=== PATIENT | female | born 1955 | race Caucasian/White ===

== ENCOUNTER → 2016-08-10 | Outpatient (CLI) | payer OTHER ==
[~2016-08-10] MED LIST: ABILIFY15 MG PO; ADDERALL30 MG PO; BRINTELLIX PO; CELEXA40 MG PO; CYMBALTA60 MG PO; INVEGA6 MG PO; LACTULOSE PO; LAMICTAL25 MG PO; LEVOTHYROXINE0.05 M1 PO; LISINOPRIL10 M1 PO; LISINOPRIL10 MG PO; LOPRESSOR25 MG PO; OMEPRAZOLE D/R20 MG PO; PRAVACHOL40 MG PO; PREMARIN0.625 M1 PO; PRILOSEC20 M2 PO; ROZEREM8 MG PO; SIMVASTATIN40 MG PO; TESSALON PERLE200 MG PO; THYROXIN PO; VITAMIN D1000 IU PO; ZITHROMAX Z PA250 MG PO; ZOCOR40 MG PO
== END | disposition home or self-care (01) ==
LOC: MAMMO 07-27 11:30
DX: Z12.31 Encounter for screening mammogram for malignant neoplasm of breast (principal)

== ENCOUNTER → 2016-10-04 | Day surgery (SDC) | payer OTHER ==
[~2016-10-04] VITALS: Ht 157.4 cm; Wt 75.3 kg
[~2016-10-04] MED LIST changes: +Lopressor25 MG PO; +NATURE'S BLEN5000 IU PO; +NATURE'S BLEND F1 MG PO; +VRAYLAR6 MG PO
--- NOTE | ~2016-10-04 | O ---
[place], [place] OPERATIVE NOTE NAME: SHAAN BRIGGS UNIT #: [id number] ROOM: DOCTOR: TIFFANY ROMO MD BIRTHDATE: [birth year] DOS: INDICATIONS: This is a 61-year-old patient who has presented with chief complaint of change in bowel habits, bloated, gassy, distended, dyspepsia, undergoing investigation. ALLERGIES: No known medication. FAMILY HISTORY: Grandmother with pancreatic CA. PAST SURGICAL HISTORY: Gallbladder and tonsillectomy. PAST MEDICAL HISTORY: Hypercholesterolemia, hypertension. SOCIAL HISTORY: Smoker and nonalcohol consumer at the present time; however, history of heavy alcohol consumption. PROCEDURE: Today's procedure part of investigation is panendoscopy and colonoscopy. PREMEDICATION: Versed and Diprivan. SCOPE: Olympus forward-viewing colonoscope 10L video. REPORT: After putting the patient in left lateral position and after application of lubricant to the scope, the scope was introduced; thereafter, under direct visualization, advanced through the length of colon without difficulty. Evidence of diverticulosis was seen. Base of the cecum explored, 3 polypoid lesions, sessile in character in hepatic flexure, 1 with snare and 2 with piecemeal polypectomy removed. Air was suctioned out. The patient was extubated, tolerated procedure well. IMPRESSION: Diverticulosis, sessile colonic polyp, hepatic flexure, status post polypectomy, 1 with snare and 2 with piecemeal polypectomy. PLAN AND DISCUSSION: Change in bowel habit bloated gassy diarrhea periodically all could be related to her diverticulosis coli history. High fiber diet was advised and we are going to proceed with panendoscopy. [place], [place] OPERATIVE NOTE NAME: DUONG BRIGGSBernardo Block UNIT #: [id number] ROOM: DOCTOR: TIFFANY ROMO MD BIRTHDATE: [birth year] TIFFANY ROMO MD CM:OPRECORD:OPERATIVE NOTE 1156 1405 TIFFANY ROMO MD 10/04/16 1405 interface
--- NOTE | ~2016-10-04 | O ---
[place], [place] OPERATIVE NOTE [id number] UNIT #: [id number] ROOM: DOCTOR: CLARISSA GERMAN,TIFFANY BIRTHDATE: [birth year] DOS: INDICATIONS: The patient has presented with chief complaint of epigastric abdominal pain, dyspepsia, undergoing investigation. PROCEDURE: Today's procedure part of investigation is panendoscopy plus biopsy. PREMEDICATION: Versed and Diprivan. SCOPE: Olympus forward-viewing gastroscope Q10 video. REPORT: After putting the patient in the left lateral position and after application of lubricant to the scope, the scope was introduced. Thereafter, under direct visualization, I advanced through the length of esophagus without difficulty. Esophagus cervicothoracic distally carefully examined. Gastritis was noticed. Duodenal bulb, second and third part within normal limits. Antral biopsy was obtained. The patient was gradually extubated from lesser curvature, tolerated the procedure well. IMPRESSION: Gastritis, status post biopsy. PLAN AND DISCUSSION: Omeprazole 20 mg 1 every day would suffice management of her dyspepsia, high fiber diet. Advised to abstain from smoking. Advised to have routine followup with you in office, p.r.n. visit with us in GI Clinic. I thank you very much indeed for your kind referral. TIFFANY ROMO MD CM:OPRECORD:OPERATIVE NOTE 1156 1406 TIFFANY ROMO MD 10/04/16 1406 interface
[2016-10-04 11:02] VITALS: BP 154/85
[2016-10-04 11:52] VITALS: BP 107/58
[2016-10-04 12:05] VITALS: BP 155/68
[2016-10-04 12:22] VITALS: BP 164/80
== END | disposition home or self-care (01) ==
LOC: SDC 09-29 10:15
DX: D12.3 Benign neoplasm of transverse colon (principal); K57.30 Diverticulosis of large intestine without perforation or abscess without bleeding; K29.50 Unspecified chronic gastritis without bleeding; Z80.0 Family history of malignant neoplasm of digestive organs; E78.00 Pure hypercholesterolemia, unspecified; I10 Essential (primary) hypertension; F17.210 Nicotine dependence, cigarettes, uncomplicated; F10.20 Alcohol dependence, uncomplicated; F41.9 Anxiety disorder, unspecified; K21.9 Gastro-esophageal reflux disease without esophagitis; F31.9 Bipolar disorder, unspecified; Z90.710 Acquired absence of both cervix and uterus

== ENCOUNTER 2017-09-04 13:17 | Inpatient (IN) | payer OTHER ==
[~2017-09-04] VITALS: Ht 160 cm; Wt 75.7 kg
--- NOTE | ~2017-09-04 | PR ---
[place], [place] PROGRESS NOTE [id number] UNIT #: [id number] ROOM: 316 DOCTOR: LEONARD FITZPATRICK MD BIRTHDATE: [birth year] DOS: 09/07/2017 CHIEF COMPLAINT: "Thank you for helping me. I really appreciate it." SUMMARY OF THE VISIT: The patient was interviewed in the dining area where she was sitting with some female peers. She engaged readily in conversation and reported that she feels slightly less depressed. She feels less stressed out because she is here and people care. She reports that she slept well with the current medications and is feeling hopeful that they will continue to work better and better for her. MENTAL STATUS: She is alert and oriented with some time gaps. Mood does seem to be more euthymic. Affect is more appropriate. There is no jose e, hypomania. There are no psychotic symptoms. Short-term memory, intermediate memory and long-term memory for the most part are intact. PLAN: I will maintain her current psychotropic regimen, continue to engage in individual and chow milieu activity. We will return to the least restrictive environment when psychiatrically stable. LEONARD FITZPATRICK MD CM:PNTRANS 1148 1257 LEONARD FITZPATRICK MD 09/07/17 1256 interface
--- NOTE | ~2017-09-04 | DS ---
[place], [place] DISCHARGE SUMMARY NAME: [facility]AN BRIGGS [facility] [id number] UNIT #: [id number] ROOM: 312 DOCTOR: LEONARD CASIANO MD BIRTHDATE: [birth year] DOS: 09/10/2017 CHIEF COMPLAINT: "Good morning Dr. Casiano, I am just so depressed." HISTORY OF PRESENT ILLNESS: This is a 62-year-old white female known to me from her previous admission here to the [facility]. The patient did present to the Emergency Room at [facility] acutely depressed with suicidal ideation to either shoot herself or walk in front of a car. The patient reports that her depression has been ongoing, but has been made worse within the last week when she received her social security rejection letter stating that she would no longer be able to receive SSI and would need to go back to work. This overwhelmed her to the point where she was not eating or sleeping at home. She was not attending to her ADLs and she was crying frequently. When the suicidal thoughts began, she feared that she would end her life if she did not seek out, so she went and presented herself to the Emergency Room to be evaluated. She is admitted now to the [facility] to perform crisis stabilization, to engage in individual and chow milieu activity and to stabilize on medication, returning to the least restrictive environment when psychiatrically stable. PAST MEDICAL HISTORY: Remarkable for history of bipolar disorder, hypertension, GERD, bronchitis. The patient does not drink alcohol. She does smoke marijuana; however, but denies any other illicit drug use. STRENGTHS: She is ambulatory and she has minimal medical issues confronting her. SUMMARY OF THE HOSPITAL COURSE: The patient was initially started on Pristiq as an antidepressant that would bypass the liver and be activating, however, she complained that she did not like this particular antidepressant, had been on it in the past and it did not work. She continued to endorse significant sleep issues, so Remeron 15 mg at bedtime was added. Her Vraylar upon admission was at a dose of 4.5 mg daily. This was maximized out to 6 mg a day. With the combination of the Vraylar 6 mg a day and Remeron 15 mg at bedtime, the patient actually slept through the night. She woke up more refreshed. She was able to engage more readily in individual and chow milieu activities and began problem solving what she needed to do to cope with the stressors that were confronting her. When she had felt that she had adequately developed a coping plan to deal with future stressors, the patient then was discharged back home. MENTAL STATUS AT DISCHARGE: The patient was alert and oriented to person, place and time. Mood was euthymic. Affect was appropriate. There was no jose e or hypomania. There were no overt auditory or visual hallucinations. Memory for the most part was intact. FINAL DIAGNOSES: Major depression, recurrent, severe and dysthymic disorder. PLAN: Her prescriptions have been e scribed to [facility]. She will have followup at [facility]. She is medically and psychiatrically stable. Her biopsychosocial needs are adequately be met by the community at large and by [facility]. [place], [place] DISCHARGE SUMMARY NAME: SHAAN BRIGGS UNIT #: [id number] ROOM: [facility] DOCTOR: LEONARD CASIANO MD BIRTHDATE: [birth year] LEONARD CASIANO MD CM:DISCHARG [id number] LEONARD CASIANO MD 09/10/17 1004 interface
--- NOTE | ~2017-09-04 | PR ---
[place], [place] PROGRESS NOTE [id number] UNIT #: [id number] ROOM: 316 DOCTOR: LEONARD FITZPATRICK MD BIRTHDATE: [birth year] DOS: 09/08/2017 CHIEF COMPLAINT: "I didn't sleep well last night." SUMMARY OF THE VISIT: The patient was interviewed as she was resting in bed. As I entered the room, she was awake and she made eye contact and wished me a good morning. She reports that she is feeling better, but did not sleep well at all, having difficulty falling asleep and maintaining sleep throughout the night. She stated that this is a very common occurrence for her and at home sleep often times was an issue for her. She does note that the current medication regimen though is helping her mood and she is less depressed and less anxious during the day. She convincingly denies any medication side effects. MENTAL STATUS: She is alert and oriented to person, place and time. Mood does seem to be trending towards euthymia. Affect is much more appropriate. There is no jose e, hypomania. There is no psychosis. No auditory or visual hallucinations are noted. Short, intermediate and long-term memories are grossly intact. PLAN: I will utilize Rozerem 8 mg at bedtime p.r.n. for sleep as a non-addictive sleep aid. We will monitor and support, engage in individual and chow milieu activity, returning to the least restrictive environment when psychiatrically stable. LEONARD FITZPATRICK MD CM:PNTRANS 1040 1147 LEONARD FITZPATRICK MD 09/08/17 1146 interface
--- NOTE | ~2017-09-04 | WRIGHTHP ---
[place], [place] PATIENT HISTORY AND PHYSICAL EXAM NAME: SHAAN BRIGGS ACC #: [id number] UNIT #: [id number] ROOM: 316 DOCTOR: LEONARD CASIANO MD BIRTHDATE: [birth year] DOS: 09/05/2017 INITIAL PSYCHIATRIC EVALUATION CHIEF COMPLAINT: "Good morning, Dr. Casiano, I'm just so depressed." HISTORY OF PRESENT ILLNESS: This is a 62-year-old white female known to me from a [facility]. The patient presented to the Emergency Room at [facility] acutely depressed with suicidal ideation to either shoot herself or walk out in front of a car. The patient reports that her depression has been ongoing, but made worse within the last week when she receives a social security rejection letter stating that she was no longer going to be receiving SSI and needed to go back to work. This overwhelmed her to the point where she was not sleeping or eating. She was not attending to her ADLs. She was crying frequently. She began to start having suicidal thoughts and fear that she would end her life if she did not seek out help. The patient presented then to the Emergency Room in order to be [facility] to re-stabilize on medication. PAST MEDICAL HISTORY: Remarkable for a reported history of bipolar disorder as well as hypertension, GERD and bronchitis. The patient does not drink alcohol. She does do smoke marijuana frequently, but denies any other drug use. Her strengths are, she is ambulatory and has minimal medical issues confronting her. MENTAL STATUS: At admission, the patient is alert and oriented. Mood is overwhelmingly depressed. Affect is flat and blunted with constricted range. She endorses multiple neurovegetative symptoms including suicidal thoughts with a plan. There is no jose e, hypomania or psychosis. Short-term, long-term and intermediate memory are intact. DIAGNOSIS: Major depression, recurrent, severe. PLAN: I will discontinue her Pristiq in lieu of Remeron 15 mg at bedtime. She reports she did not sleep at all last night. I will maximize out her dose of Vraylar from 4.5 mg to 6 mg at bedtime, engage in individual and chow milieu activities, returning to the least restrictive environment when psychiatrically stable. [place], [place] PATIENT HISTORY AND PHYSICAL EXAM NAME: SHAAN BRIGGS UNIT #: [id number] ROOM: [facility] DOCTOR: LEONARD CASIANO MD BIRTHDATE: [birth year] LEONARD CASIANO MD CM:HISPHYS:PATIENT HISTORY AND PHYSICAL EXAMINATION 1129 1140 LEONARD CASIANO MD 09/05/17 1139 interface
--- NOTE | ~2017-09-04 | PR ---
[place], [place] PROGRESS NOTE NAME[id number] UNIT #: [id number] ROOM: 316 DOCTOR: LEONARD FITZPATRICK MD BIRTHDATE: [birth year] DOS: 09/06/2017 CHIEF COMPLAINT: "I did sleep a little better, but my belly as bothering me." SUMMARY OF THE VISIT: The patient was interviewed as she was resting on her bed. She was awake as I approached and she engaged readily in conversation. She reports that she slept better last night with the current medication regimen, but states that her belly has been bothering her and she has had persistent diarrhea, which has her concerned. I did mention I would pass this on to nursing, so that the hospitalist would be aware of it. Mood sheehan she still is depressed, but is hopeful that the Remeron is going to impact positively on her mood. She denies any other side effects from the medicines themselves. MENTAL STATUS: She remains alert and oriented with minor time gaps, but overall intact. Mood does still seem to be depressed with some anxious overtones. There is no hypomania or jose e. There are no overt auditory or visual hallucinations. No delusions, no paranoia. Short, intermediate and long-term memories are intact for the most part. PLAN: I will maintain Remeron at 15 mg at bedtime, maintain the Vraylar 6 mg at bedtime, continue to engage her in individual and chow milieu activity, returning then to the least restrictive environment when psychiatrically stable. LEONARD FITZPATRICK MD CM:PNTRANS 1139 1227 LEONARD FITZPATRICK MD 09/06/17 1226 interface
--- NOTE | ~2017-09-04 | PR ---
[place], [place] PROGRESS NOTE NAME: [facility]AN [facility]IG[id number] UNIT #: [id number] ROOM: 312 DOCTOR: LEONARD FITZPATRICK MD BIRTHDATE: [birth year] DOS: 09/09/2017 CHIEF COMPLAINT: "I didn't sleep well last night, but I still do not want that medicine straight." SUMMARY OF THE VISIT: The patient was interviewed in the dining area where she was engaging in activity. She reported that she had sleep continuity disturbance last night, waking up at least 3 times, but being able to fall asleep pretty quickly. She requested that I not order the sleeping pill straight, stating that she would like to be on as little medicine as possible. She does report that the current antidepressant with the Vraylar is helping her and she is feeling more positive about life. MENTAL STATUS: She is alert and oriented. Mood does seem to be trending towards euthymia. Affect is more appropriate. There is no jose e, hypomania or psychosis. Short-term, intermediate, and long-term memory are intact. PLAN: I will maintain her current psychotropic regimen, engage in individual and chow milieu activity with the plan to return home when psychiatrically stable. LEONARD FITZPATRICK MD CM:PNTRANS 1029 1134 LEONARD FITZPATRICK MD 09/09/17 1134 interface
[2017-09-04 13:24] VITALS: BP 175/95
[2017-09-04 13:56] LABS: BASO # 0.1 10*3/uL (0.0-0.1); BASO % 0.4 % (0.0-1.0); EOS # 0.1 10*3/uL (0.0-0.4); EOS % 0.9 % (1.0-4.0); HEMATOCRIT 43.3 % (37.0-47.0); HEMOGLOBIN 14.6 g/dl (12.0-16.0); LYMPH # 2.8 10*3/uL (1.3-4.4); LYMPH % 24.7 % (27.0-41.0); MEAN CORPUSCULAR HGB 29.7 pg (27.0-31.0); MEAN CORPUSCULAR HGB CONC 33.7 g/dl (33.0-37.0); MEAN PLATELET VOLUME 10.9 fl (9.6-12.3); MONO # 0.8 10*3/uL (0.1-1.0); MONO % 6.8 % (3.0-9.0); NEUT # 7.6 10*3/uL (2.3-7.9); NEUT % 66.9 % (47.0-73.0); PLATELET COUNT AUTOMATED 218 10*3/uL (130-400); RED BLOOD COUNT 4.92 10*6/uL (4.10-5.10); RED CELL DISTRI WIDTH 13.5 % (0-14.5); WHITE BLOOD COUNT 11.4 10*3/uL (4.8-10.8)
[2017-09-04 14:14] LABS: ACETAMINOPHEN (TYLENOL) < 2.0 ug/ml (10-30); ALBUMIN 4.1 gm/dl (3.1-4.5); ALKALINE PHOSPHATASE 86 U/L (45-117); BUN 12 mg/dl (7-24); CHLORIDE 105 mmol/L (98-107); CREATININE 0.94 mg/dL (0.55-1.02); POTASSIUM 4.2 mmol/L (3.5-5.1); SGOT/AST 56 IU/L (3-35); SGPT/ALT 73 U/L (12-78); SODIUM 139 mmol/L (136-145); TOTAL PROTEIN 7.1 gm/dL (6.4-8.2)
[2017-09-04 14:15] LABS: ETHYL ALCOHOL < 3.0 mg/dl (<3)
[2017-09-04] MEDS ORDERED: Motrin,Rufen800 MG PO (14:22)
[2017-09-04] MEDS ORDERED: BUSPAR5 MG PO (14:22)
[2017-09-04 14:31] LABS: BILIRUBIN NEGATIVE (NEGATIVE); BLOOD NEGATIVE (NEGATIVE); CLARITY SL CLOUDY (CLEAR); COLOR YELLOW (YELLOW); GLUCOSE NEGATIVE (NEGATIVE); KETONE 1+ (NEGATIVE); LEUKO ESTERASE NEGATIVE (NEGATIVE); NITRITE NEGATIVE (NEGATIVE); SPECIFIC GRAVITY 1.025 (1.005-1.030); UROBILINOGEN 0.2 E.U./dl (0.2-1.0)
[2017-09-04 14:40] LABS: URINE AMPHETAMINES < 1000 (1000ng/ml); URINE BARBITURATES < 200 (200ng/ml); URINE BENZODIAZEPINES < 200 (200ng/ml); URINE CANNABINOIDS (THC) > 50 (50ng/ml); URINE COCAINE < 300 (300ng/ml); URINE METHADONE < 300 (300ng/ml); URINE OPIATES < 300 (300ng/ml)
[2017-09-04 14:41] LABS: URINE PHENCYCLIDINE < 25 (25ng/ml)
[2017-09-04 14:49] LABS: BACTERIA 2+; MUCOUS TRACE; RBC 0-2 rbc/hpf (0-2)
[2017-09-04 17:05] VITALS: BP 140/73
[2017-09-04] MEDS ORDERED: CLARITIN10 MG PO (17:45)
[2017-09-04 18:28] VITALS: BP 152/89
[2017-09-04 18:52] VITALS: BP 152/89
[2017-09-04 20:00] VITALS: BP 152/89
[2017-09-05 06:23] LABS: BASO % 0.3 % (0.0-1.0); EOS # 0.2 10*3/uL (0.0-0.4); EOS % 2.7 % (1.0-4.0); HEMATOCRIT 43.9 % (37.0-47.0); HEMOGLOBIN 14.4 g/dl (12.0-16.0); LYMPH # 2.7 10*3/uL (1.3-4.4); LYMPH % 37.6 % (27.0-41.0); MEAN CORPUSCULAR HGB 29.2 pg (27.0-31.0); MEAN CORPUSCULAR HGB CONC 32.8 g/dl (33.0-37.0); MEAN PLATELET VOLUME 10.8 fl (9.6-12.3); MONO # 0.6 10*3/uL (0.1-1.0); MONO % 7.7 % (3.0-9.0); NEUT # 3.7 10*3/uL (2.3-7.9); NEUT % 51.4 % (47.0-73.0); PLATELET COUNT AUTOMATED 157 10*3/uL (130-400); RED BLOOD COUNT 4.93 10*6/uL (4.10-5.10); RED CELL DISTRI WIDTH 13.7 % (0-14.5); WHITE BLOOD COUNT 7.2 10*3/uL (4.8-10.8)
[2017-09-05 06:43] LABS: ALBUMIN 3.4 gm/dl (3.1-4.5); BUN 13 mg/dl (7-24); CHLORIDE 107 mmol/L (98-107); POTASSIUM 4.3 mmol/L (3.5-5.1); SGOT/AST 43 IU/L (3-35); SODIUM 140 mmol/L (136-145)
[2017-09-05 06:56] LABS: ALKALINE PHOSPHATASE 82 U/L (45-117); CHOLESTEROL 141 mg/dL (<200); HDL CHOLESTEROL 36 mg/dl (40-60); LDL CHOLESTEROL 82 mg/dL (9-159); SGPT/ALT 64 U/L (12-78); TOTAL PROTEIN 6.7 gm/dL (6.4-8.2); TRIGLYCERIDES 113 mg/dl (<150); VLDL CHOLESTEROL 23 mg/dL (6-40)
[2017-09-05 07:37] LABS: VITAMIN D, 25-HYDROXY 43.1 ng/mL (30-100)
[2017-09-05 08:00] VITALS: BP 143/71
[2017-09-05] MEDS ORDERED: BUSPAR5 MG PO (11:32)
[2017-09-05 21:33] VITALS: BP 152/84
[2017-09-06 07:56] VITALS: BP 135/83
[2017-09-06 20:20] VITALS: BP 128/80
[2017-09-07 07:41] VITALS: BP 137/74
[2017-09-07 19:41] VITALS: BP 138/88
[2017-09-08 08:22] VITALS: BP 144/74
[2017-09-08 20:43] VITALS: BP 132/70
[2017-09-09 07:42] VITALS: BP 150/72
[2017-09-09 19:49] VITALS: BP 156/82
[2017-09-10 07:53] VITALS: BP 134/75
[2017-09-10] MEDS ORDERED: VITAMIN D5000 UNI1 PO (08:46)
[2017-09-10] MEDS ORDERED: MIRTAZAPINE15 M2 PO (08:46)
[2017-09-10] MEDS ORDERED: VRAYLAR6 MG PO (08:46)
== END 2017-09-10 15:42 | disposition home or self-care (01) | DRG 885 ==
LOC: ED 13:17 → 3N 17:31
PROVIDERS: Psychiatry & Neurology Psychiatry; Student in an Organized Health Care Education/Training Program
DX: F33.2 Major depressive disorder, recurrent severe without psychotic features (principal); R45.851 Suicidal ideations; F25.9 Schizoaffective disorder, unspecified; I10 Essential (primary) hypertension; R73.9 Hyperglycemia, unspecified; F12.20 Cannabis dependence, uncomplicated; D72.829 Elevated white blood cell count, unspecified; R74.0 Nonspecific elevation of levels of transaminase and lactic acid dehydrogenase [LDH]; K21.9 Gastro-esophageal reflux disease without esophagitis; F34.1 Dysthymic disorder; G89.29 Other chronic pain; R10.9 Unspecified abdominal pain; F17.210 Nicotine dependence, cigarettes, uncomplicated; Z86.59 Personal history of other mental and behavioral disorders; Z79.899 Other long term (current) drug therapy; Z79.1 Long term (current) use of non-steroidal anti-inflammatories (NSAID); Z90.49 Acquired absence of other specified parts of digestive tract; Z90.710 Acquired absence of both cervix and uterus; Z84.89 Family history of other specified conditions

== ENCOUNTER → 2019-04-09 | Outpatient (CLI) | payer OTHER ==
[~2019-04-09] MED LIST changes: +BUSPAR5 MG PO; +CLARITIN10 MG PO; +MIRTAZAPINE15 M2 PO; +Motrin,Rufen800 MG PO; +VITAMIN D5000 UNI1 PO
== END | disposition home or self-care (01) ==
LOC: RAD 10:11
DX: R05 Cough (principal)

== ENCOUNTER → 2020-01-19 | Outpatient (CLI) | payer OTHER | END | disposition home or self-care (01) | LOC: MAMMO 12:26 | PROVIDERS: ATTEND Family Medicine | DX: Z12.31 Encounter for screening mammogram for malignant neoplasm of breast (principal) ==

== ENCOUNTER 2021-11-28 15:19 | Emergency (ER) | payer OTHER ==
[~2021-11-28] VITALS: Wt 72.6 kg
[2021-11-28 15:32] VITALS: BP 160/88
[2021-11-28] MEDS ORDERED: MEDROL DOSEPAK4 MG PO (16:56)
== END 2021-11-28 19:24 | disposition home or self-care (01) ==
LOC: ED 15:19
DX: J04.0 Acute laryngitis (principal); Z79.899 Other long term (current) drug therapy; Z90.710 Acquired absence of both cervix and uterus; Z90.49 Acquired absence of other specified parts of digestive tract; F17.210 Nicotine dependence, cigarettes, uncomplicated

== ENCOUNTER → 2021-12-21 | Day surgery (SDC) | payer OTHER ==
[2021-12-16 13:16] VITALS: BP 133/81
[~2021-12-21] VITALS: Wt 73.9 kg
[2021-12-21] VITALS (7 sets, daily range): BP systolic 105–139; BP diastolic 65–86
[~2021-12-21] MED LIST changes: +AMOXICILLIN875 MG PO; +BELBUCA150 MCG BC; +BUSPIRONE15 MG PO; +HYDROXYZINE HYD50 MG PO; +LAMICTAL150 MG PO; +MEDROL DOSEPAK4 MG PO; +VICO10300 PO
== END | disposition home or self-care (01) ==
LOC: SDC 12-16 12:30
PROVIDERS: ATTEND Specialist
DX: J38.1 Polyp of vocal cord and larynx (principal); J34.89 Other specified disorders of nose and nasal sinuses; D36.7 Benign neoplasm of other specified sites; I10 Essential (primary) hypertension; E11.9 Type 2 diabetes mellitus without complications; K21.9 Gastro-esophageal reflux disease without esophagitis; F31.9 Bipolar disorder, unspecified; F41.9 Anxiety disorder, unspecified; E78.00 Pure hypercholesterolemia, unspecified; E03.9 Hypothyroidism, unspecified; J45.909 Unspecified asthma, uncomplicated; Z79.899 Other long term (current) drug therapy; Z90.49 Acquired absence of other specified parts of digestive tract; Z90.710 Acquired absence of both cervix and uterus

== ENCOUNTER → 2024-02-15 | Outpatient (CLI) | payer OTHER | END | disposition home or self-care (01) | LOC: US 13:30 | PROVIDERS: ATTEND Internal Medicine Cardiovascular Disease | DX: I87.2 Venous insufficiency (chronic) (peripheral) (principal); R60.0 Localized edema; M79.605 Pain in left leg ==

== ENCOUNTER 2024-07-05 18:45 | Emergency (ER) | payer OTHER ==
[~2024-07-05] VITALS: Ht 160 cm; Wt 63.5 kg
[2024-07-05 18:49] VITALS: BP 168/109
[2024-07-05] MEDS ORDERED: SODIUM CHLORIDE 0.9% 1,000 ML IV ONE (18:55)
[2024-07-05 19:11] LABS: BASO % 0.4 % (0.0-1.0); EOS # 0.1 10*3/uL (0.0-0.4); EOS % 0.7 % (1.0-4.0); HEMATOCRIT 46.3 % (37.0-47.0); MEAN CELL VOLUME 89.7 fl (81.0-99.0); MEAN CORPUSCULAR HGB 29.1 pg (27.0-31.0); MEAN CORPUSCULAR HGB CONC 32.4 g/dl (33.0-37.0); MEAN PLATELET VOLUME 9.7 fl (9.6-12.3); MONO # 0.7 10*3/uL (0.1-1.0); MONO % 6.6 % (3.0-9.0); NEUT # 7.4 10*3/uL (2.3-7.9); NEUT % 74.6 % (47.0-73.0); PLATELET COUNT AUTOMATED 223 10*3/uL (130-400); RED BLOOD COUNT 5.16 10*6/uL (4.10-5.10); RED CELL DISTRI WIDTH 14.2 % (0-14.5)
[2024-07-05 19:26] LABS: BUN 16 mg/dl (9-23); CHLORIDE 107 mmol/L (98-107); CPK 122 U/L (34-171)
[2024-07-05 19:29] LABS: ETHYL ALCOHOL < 3.0 mg/dl (<3)
[2024-07-05 19:33] LABS: BILIRUBIN Negative (Negative); BLOOD Negative (Negative); CLARITY Clear (Clear); COLOR Dark Yellow (Yellow); GLUCOSE 2+ (Negative); KETONE Trace (Negative); LEUKO ESTERASE 1+ (Negative); NITRITE Negative (Negative)
[2024-07-05 19:38] LABS: MUCOUS 2+
[2024-07-05 19:39] LABS: BACTERIA TRACE; EPITHELIAL CELLS 16-20
[2024-07-05 19:43] LABS: URINE AMPHETAMINES Negative (1000ng/ml); URINE BARBITURATES Negative (200ng/ml); URINE BENZODIAZEPINES Negative (200ng/ml); URINE CANNABINOIDS (THC) Positive (50ng/ml); URINE COCAINE Negative (300ng/ml); URINE METHADONE Negative (300ng/ml); URINE OPIATES Positive (300ng/ml); URINE PHENCYCLIDINE Negative (25ng/ml)
== END 2024-07-05 20:58 | disposition home or self-care (01) ==
LOC: ED 18:45
PROVIDERS: Emergency Medicine
DX: R53.1 Weakness (principal); F12.90 Cannabis use, unspecified, uncomplicated; R00.0 Tachycardia, unspecified; I10 Essential (primary) hypertension; K21.9 Gastro-esophageal reflux disease without esophagitis; F41.9 Anxiety disorder, unspecified; E11.9 Type 2 diabetes mellitus without complications; F31.9 Bipolar disorder, unspecified; E78.5 Hyperlipidemia, unspecified; E03.9 Hypothyroidism, unspecified; F17.200 Nicotine dependence, unspecified, uncomplicated; Z79.899 Other long term (current) drug therapy; Z90.49 Acquired absence of other specified parts of digestive tract; Z90.710 Acquired absence of both cervix and uterus; Z98.890 Other specified postprocedural states

== ENCOUNTER 2024-08-04 13:00 | Emergency (ER) | payer OTHER ==
[~2024-08-04] VITALS: Ht 160 cm; Wt 63.5 kg
[2024-08-04 13:19] VITALS: BP 162/94
[2024-08-04] MEDS ORDERED: Acetaminophen/Hydrocodone 5 MG/325 MG TABLET PO ONE (13:30)
[2024-08-04] MEDS ORDERED: NAPROSYN500 MG PO (15:24)
== END 2024-08-04 15:35 | disposition home or self-care (01) ==
LOC: ED 13:00
DX: M25.512 Pain in left shoulder (principal); S30.0XXA Contusion of lower back and pelvis, initial encounter; F31.9 Bipolar disorder, unspecified; I10 Essential (primary) hypertension; F25.9 Schizoaffective disorder, unspecified; F17.210 Nicotine dependence, cigarettes, uncomplicated; Z79.82 Long term (current) use of aspirin; Z79.899 Other long term (current) drug therapy; Z90.710 Acquired absence of both cervix and uterus; Z90.49 Acquired absence of other specified parts of digestive tract; W11.XXXA Fall on and from ladder, initial encounter; Y93.89 Activity, other specified; Y92.89 Other specified places as the place of occurrence of the external cause; Y99.8 Other external cause status

== ENCOUNTER 2024-09-19 15:24 | Emergency (ER) | payer OTHER ==
[~2024-09-19] VITALS: Ht 160 cm; Wt 64.4 kg
[~2024-09-19 15:24] MED LIST changes: +NAPROSYN500 MG PO
[2024-09-19 15:30] VITALS: BP 153/74
[2024-09-19 15:55] LABS: BASO % 0.4 % (0.0-1.0); EOS # 0.1 10*3/uL (0.0-0.4); EOS % 1.6 % (1.0-4.0); MEAN CELL VOLUME 90.5 fl (81.0-99.0); MEAN CORPUSCULAR HGB 29.5 pg (27.0-31.0); MEAN CORPUSCULAR HGB CONC 32.6 g/dl (33.0-37.0); MONO # 0.7 10*3/uL (0.1-1.0); MONO % 8.9 % (3.0-9.0); NEUT % 62.1 % (47.0-73.0); PLATELET COUNT AUTOMATED 203 10*3/uL (130-400); RED BLOOD COUNT 4.75 10*6/uL (4.10-5.10); RED CELL DISTRI WIDTH 13.8 % (0-14.5)
[2024-09-19 16:16] LABS: BUN 17 mg/dl (9-23); CHLORIDE 108 mmol/L (98-107); POTASSIUM 4.1 mmol/L (3.4-5.1)
[2024-09-19] MEDS ORDERED: AVPAK AZITHROM250 MG PO (17:03)
[2024-09-19] MEDS ORDERED: MEDROL DOSEPAK4 MG PO (17:03)
== END 2024-09-19 17:15 | disposition home or self-care (01) ==
LOC: ED 15:24
PROVIDERS: Internal Medicine
DX: J40 Bronchitis, not specified as acute or chronic (principal); I10 Essential (primary) hypertension; E11.9 Type 2 diabetes mellitus without complications; F32.A Depression, unspecified; F41.9 Anxiety disorder, unspecified; K21.9 Gastro-esophageal reflux disease without esophagitis; E78.00 Pure hypercholesterolemia, unspecified; E78.5 Hyperlipidemia, unspecified; F17.200 Nicotine dependence, unspecified, uncomplicated; Z79.899 Other long term (current) drug therapy; Z90.49 Acquired absence of other specified parts of digestive tract; Z90.710 Acquired absence of both cervix and uterus

== ENCOUNTER 2025-04-20 09:40 | Emergency (ER) | payer OTHER ==
[~2025-04-20] VITALS: Wt 54.4 kg
[~2025-04-20 09:40] MED LIST changes: +AVPAK AZITHROM250 MG PO
[2025-04-20 09:47] VITALS: BP 163/85
[2025-04-20 09:54] LABS: BASO # 0.0 10*3/uL (0.0-0.1); BASO % 0.4 % (0.0-1.0); EOS # 0.2 10*3/uL (0.0-0.4); EOS % 2.7 % (1.0-4.0); MEAN CELL VOLUME 90.5 fl (81.0-99.0); MEAN CORPUSCULAR HGB 29.1 pg (27.0-31.0); MEAN PLATELET VOLUME 9.8 fl (9.6-12.3); MONO # 0.6 10*3/uL (0.1-1.0); MONO % 9.4 % (3.0-9.0); NEUT # 4.1 10*3/uL (2.3-7.9); NEUT % 62.1 % (47.0-73.0); NUCLEATED RED BLOOD CELL 0.0 % (0.0-0.0); NUCLEATED RED BLOOD CELL 0.0 10*3/uL (0.0-0.0); PLATELET COUNT AUTOMATED 185 10*3/uL (130-400); RED CELL DISTRI WIDTH 15.0 % (0-14.5)
[2025-04-20 10:17] LABS: BUN 14 mg/dl (9-23)
== END 2025-04-20 12:10 | disposition home or self-care (01) ==
LOC: ED 09:40
PROVIDERS: Student in an Organized Health Care Education/Training Program
DX: S63.285A Dislocation of proximal interphalangeal joint of left ring finger, initial encounter (principal); Z90.710 Acquired absence of both cervix and uterus; Z90.49 Acquired absence of other specified parts of digestive tract; W19.XXXA Unspecified fall, initial encounter; Y93.89 Activity, other specified; Y92.89 Other specified places as the place of occurrence of the external cause; Y99.8 Other external cause status